=== PATIENT | female | born 1995 | race Two or more races ===

== ENCOUNTER 2017-12-03 20:22 | Emergency (ER) | payer OTHER ==
[~2017-12-03] VITALS: Ht 165.1 cm; Wt 63.5 kg
[2017-12-03 20:46] VITALS: BP 115/65
[2017-12-03] MEDS ORDERED: ACETAMINOPHEN 325 MG TAB PO ONE (20:46)
[2017-12-03] MEDS ORDERED: ACETAMINOPHEN 650 mg PER 20 mL UD ONE (20:49)
[2017-12-03] MEDS ORDERED: ACETAMINOPHEN 650 mg PER 20 mL UD PO ONE (21:15)
== END 2017-12-04 01:01 | disposition home or self-care (01) ==
LOC: ER 20:22
DX: J06.9 Acute upper respiratory infection, unspecified (principal)